=== PATIENT | female | born 1945 | race African-American/Black ===

== ENCOUNTER 2017-03-27 23:58 | Inpatient (IN) | payer BC ==
[~2017-03-27] VITALS: Ht 175.3 cm; Wt 73.5 kg
[~2017-03-27 23:58] MED LIST: AMLO10TA80 PO; FLUO20TA29 PO; LABE100T PO; RISP1 PO
[2017-03-28] MEDS ORDERED: DIPHENHYDRAMINE 50MG/ML VIAL IV ONE (00:15)
[2017-03-28] MEDS ORDERED: FAMOTIDINE 20MG/2ML VIAL IV ONE (00:15)
[2017-03-28] MEDS ORDERED: METHYLPREDNISOLONE SOD SUCC 125 MG/2 ML VIAL IV ONE (00:15)
[2017-03-28 00:54] LABS: BASOPHILS % 0.4 % (0.0-2.0); EOSINOPHILS % 0.7 % (0.0-5.0); HEMATOCRIT. 37.3 % (36.0-48.0); HEMOGLOBIN. 12.1 g/dL (12.0-16.0); LYMPHOCYTES % 21.9 % (20.0-50.0); MEAN CORPUSCULAR HEMOGLOBIN 26.2 pg (28.0-32.0); MEAN CORPUSCULAR VOLUME 80.7 fL (81.0-99.0); MEAN PLATELET VOLUME 8.9 fl (7.4-10.4); MONOCYTES % 9.2 % (2.0-8.0); NEUTROPHILS % 67.8 % (40.0-76.0); PLATELET 210 x1000/uL (130-400); RED BLOOD CELL COUNT 4.62 mill/uL (4.2-5.4); RED CELL DISTRIBUTION WIDTH 16.5 % (11.6-14.6)
[2017-03-28 01:05] LABS: CARBON DIOXIDE 27 mEq/L (21-32); CHLORIDE 106 mEq/L (98-107); ETHANOL BLOOD < 10 mg/dL; TROPONIN I 0.34 ng/mL (0.00-0.04)
[2017-03-28] MEDS ORDERED: HYDRALAZINE 20MG/ML VIAL IV ONE (04:30)
[2017-03-28 08:58] VITALS: BP 147/84
[2017-03-28] MEDS ORDERED: IPRATROPIUM/ALBUTEROL 0.5-3(2.5)MG/3ML NEB INH PRN (11:30)
[2017-03-28] MEDS ORDERED: ACETAMINOPHEN 325MG TABLET PO PRN (11:30)
[2017-03-28] MEDS ORDERED: HYDROCODONE/ACETAMINOPHEN 5/325MG TABLET PO PRN (11:30)
[2017-03-28] MEDS ORDERED: ONDANSETRON HCL 4MG/2ML VIAL IV PRN (11:30)
[2017-03-28] MEDS: LABETALOL HCL 100MG TABLET PO SCH ×2 (11:30→17:50)
[2017-03-28] MEDS: AMLODIPINE 10MG TABLET PO SCH (11:30)
[2017-03-28] MEDS ORDERED: CLONIDINE 0.1MG TABLET PO PRN (11:30)
[2017-03-28 12:00] VITALS: BP 170/100
[2017-03-28] MEDS: SODIUM CHLORIDE 0.45% 1,000 ML IV SCH (12:56)
[2017-03-28] MEDS: ENOXAPARIN 40MG/0.4ML SYR SUBCUT SCH (12:57)
[2017-03-28 16:00] VITALS: BP_SYST 147; BP_SYST 153; BP_DIAS 108; BP_DIAS 80
[2017-03-28] MEDS: RISPERIDONE 1MG TABLET PO SCH (17:49)
[2017-03-28 23:25] LABS: TROPONIN I 0.32 ng/mL (0.00-0.04)
[2017-03-29] VITALS: BP 115/80
[2017-03-29 04:00] VITALS: BP 156/82
[2017-03-29] MEDS: SODIUM CHLORIDE 0.45% 1,000 ML IV SCH ×3 (04:55→20:20)
[2017-03-29 07:36] LABS: BASOPHILS % 0.2 % (0.0-2.0); EOSINOPHILS % 0.5 % (0.0-5.0); HEMOGLOBIN. 11.5 g/dL (12.0-16.0); LYMPHOCYTES % 33.6 % (20.0-50.0); MEAN CORPUSCULAR HEMOGLOBIN 26.2 pg (28.0-32.0); MEAN CORPUSCULAR VOLUME 81.9 fL (81.0-99.0); MEAN PLATELET VOLUME 9.8 fl (7.4-10.4); MONOCYTES % 12.2 % (2.0-8.0); NEUTROPHILS % 53.5 % (40.0-76.0); PLATELET 171 x1000/uL (130-400); RED BLOOD CELL COUNT 4.39 mill/uL (4.2-5.4); RED CELL DISTRIBUTION WIDTH 16.6 % (11.6-14.6)
[2017-03-29 08:00] VITALS: BP 170/102
[2017-03-29 08:29] LABS: CARBON DIOXIDE 28 mEq/L (21-32); CHLORIDE 108 mEq/L (98-107); HDL CHOLESTEROL 59 mg/dL (40-59); LDL CHOLESTEROL 131 mg/dL (5-100); T4 FREE 1.19 ng/dL (0.76-1.46)
[2017-03-29] MEDS: LABETALOL HCL 100MG TABLET PO SCH ×2 (09:20→17:00)
[2017-03-29] MEDS: AMLODIPINE 10MG TABLET PO SCH (09:20)
[2017-03-29] MEDS: ENOXAPARIN 40MG/0.4ML SYR SUBCUT SCH (09:21)
[2017-03-29 12:00] VITALS: BP 159/89
[2017-03-29 16:44] VITALS: BP 108/65
[2017-03-29] MEDS: RISPERIDONE 1MG TABLET PO SCH (17:25)
[2017-03-29 20:00] VITALS: BP 148/72
[2017-03-29] MEDS ORDERED: POTASSIUM CHLORIDE INJ 40 MEQ in DEXT 5% WATER 500 ML IV NR (23:30)
[2017-03-30] VITALS: BP 105/67
[2017-03-30 04:00] VITALS: BP 166/92
[2017-03-30 08:00] VITALS: BP 185/112
[2017-03-30 08:07] LABS: CARBON DIOXIDE 26 mEq/L (21-32); CHLORIDE 105 mEq/L (98-107)
[2017-03-30] MEDS: AMLODIPINE 10MG TABLET PO SCH (11:32)
[2017-03-30] MEDS: LABETALOL HCL 100MG TABLET PO SCH (11:32)
[2017-03-30] MEDS: ENOXAPARIN 40MG/0.4ML SYR SUBCUT SCH (11:32)
[2017-03-30 12:00] VITALS: BP 141/88
[2017-03-30 15:54] VITALS: BP 112/84
[2017-03-30 20:00] VITALS: BP 136/68
[2017-03-30] MEDS: RISPERIDONE 1MG TABLET PO SCH (20:29)
[2017-03-31] VITALS: BP 119/68
[2017-03-31 04:00] VITALS: BP 121/73
[2017-03-31] MEDS: SODIUM CHLORIDE 0.45% 1,000 ML IV SCH (06:10)
[2017-03-31 08:01] VITALS: BP 148/74
[2017-03-31] MEDS: AMLODIPINE 10MG TABLET PO SCH (09:22)
[2017-03-31] MEDS: ENOXAPARIN 40MG/0.4ML SYR SUBCUT SCH (09:23)
[2017-03-31] MEDS: LABETALOL HCL 100MG TABLET PO SCH ×2 (09:23→16:44)
[2017-03-31 12:08] VITALS: BP 153/89
[2017-03-31 16:19] VITALS: BP 146/75
[2017-03-31] MEDS: RISPERIDONE 1MG TABLET PO SCH (16:44)
[2017-03-31] MEDS ORDERED: POTASSIUM CHLORIDE 20MEQ/PACKET PO NR (17:15)
[2017-03-31] MEDS ORDERED: MAGNESIUM 2 G PREMIX 50 ML IV NR (18:00)
[2017-03-31 20:00] VITALS: BP 138/60
[2017-04-01] VITALS: BP 140/66
[2017-04-01] MEDS: SODIUM CHLORIDE 0.45% 1,000 ML IV SCH ×2 (00:59→16:24)
[2017-04-01 04:00] VITALS: BP 128/62
[2017-04-01 07:50] VITALS: BP 151/85
[2017-04-01] MEDS: AMLODIPINE 10MG TABLET PO SCH (08:45)
[2017-04-01] MEDS: LABETALOL HCL 100MG TABLET PO SCH ×2 (08:45→16:24)
[2017-04-01] MEDS: ENOXAPARIN 40MG/0.4ML SYR SUBCUT SCH (08:45)
[2017-04-01 12:00] VITALS: BP 128/96
[2017-04-01 16:00] VITALS: BP_SYST 157; BP_DIAS 93; BP_DIAS 96
[2017-04-01] MEDS: RISPERIDONE 1MG TABLET PO SCH (16:24)
[2017-04-01 20:00] VITALS: BP 139/80
[2017-04-02] VITALS: BP 141/81
[2017-04-02 04:00] VITALS: BP 148/86
[2017-04-02 08:00] VITALS: BP 110/66
[2017-04-02] MEDS: SODIUM CHLORIDE 0.45% 1,000 ML IV SCH (08:40)
[2017-04-02] MEDS: AMLODIPINE 10MG TABLET PO SCH (11:09)
[2017-04-02] MEDS: ENOXAPARIN 40MG/0.4ML SYR SUBCUT SCH (11:10)
[2017-04-02] MEDS: LABETALOL HCL 100MG TABLET PO SCH ×2 (11:10→18:05)
[2017-04-02 16:00] VITALS: BP 190/110
[2017-04-02] MEDS: RISPERIDONE 1MG TABLET PO SCH (18:05)
[2017-04-02 20:00] VITALS: BP 164/80
[2017-04-03] VITALS: BP 150/80
[2017-04-03 04:00] VITALS: BP 159/83
[2017-04-03] MEDS: SODIUM CHLORIDE 0.45% 1,000 ML IV SCH ×2 (06:38→17:23)
[2017-04-03 08:00] VITALS: BP 178/85
[2017-04-03] MEDS: ENOXAPARIN 40MG/0.4ML SYR SUBCUT SCH (08:39)
[2017-04-03] MEDS: AMLODIPINE 10MG TABLET PO SCH (08:41)
[2017-04-03] MEDS: LABETALOL HCL 100MG TABLET PO SCH ×2 (08:41→17:22)
[2017-04-03 09:50] LABS: CARBON DIOXIDE 23 mEq/L (21-32); CHLORIDE 109 mEq/L (98-107)
[2017-04-03 12:00] VITALS: BP 151/79
[2017-04-03 16:00] VITALS: BP 144/70
[2017-04-03 16:38] LABS: BASOPHILS % 0.4 % (0.0-2.0); EOSINOPHILS % 1.7 % (0.0-5.0); HEMATOCRIT. 35.7 % (36.0-48.0); HEMOGLOBIN. 11.5 g/dL (12.0-16.0); LYMPHOCYTES % 39.2 % (20.0-50.0); MEAN CORPUSCULAR HEMOGLOBIN 26.1 pg (28.0-32.0); MEAN CORPUSCULAR VOLUME 80.9 fL (81.0-99.0); MEAN PLATELET VOLUME 9.5 fl (7.4-10.4); MONOCYTES % 11.2 % (2.0-8.0); NEUTROPHILS % 47.5 % (40.0-76.0); PLATELET 205 x1000/uL (130-400); RED BLOOD CELL COUNT 4.41 mill/uL (4.2-5.4); RED CELL DISTRIBUTION WIDTH 16.1 % (11.6-14.6)
[2017-04-03] MEDS: RISPERIDONE 1MG TABLET PO SCH (17:22)
[2017-04-03 20:55] VITALS: BP 147/83
[2017-04-04] VITALS: BP 166/73
[2017-04-04 04:00] VITALS: BP 133/78
[2017-04-04 08:01] VITALS: BP 165/84
[2017-04-04] MEDS: ENOXAPARIN 40MG/0.4ML SYR SUBCUT SCH (08:38)
[2017-04-04] MEDS: AMLODIPINE 10MG TABLET PO SCH (08:38)
[2017-04-04] MEDS: LABETALOL HCL 100MG TABLET PO SCH (08:38)
[2017-04-04] MEDS: SODIUM CHLORIDE 0.45% 1,000 ML IV SCH (10:42)
[2017-04-04] MEDS ORDERED: LORAZEPAM 2MG/ML CPJ IV PRN (11:00)
[2017-04-04] MEDS ORDERED: LACTULOSE 20G/30ML UDC PO PRN (11:00)
[2017-04-04 12:13] VITALS: BP 145/78
[2017-04-04 14:40] VITALS: BP 90/44
[2017-04-04] MEDS ORDERED: RISPERIDONE 1MG TABLET PO SCH (17:00)
== END 2017-04-04 15:30 | disposition home or self-care (01) | DRG 948 ==
LOC: ER 23:59 → OBSVTOIN 03-28 01:39 → INTOOBSV 03-28 01:39 → 8WST 03-28 01:39 → EDBEDREQSVC 03-28 02:13 → ENRESERV 03-28 07:08 → 8WST 03-28 09:19
PROVIDERS: ADMIT Internal Medicine; ATTEND Internal Medicine
DX: R60.9 Edema, unspecified (principal); Z93.0 Tracheostomy status; F03.90 Unspecified dementia, unspecified severity, without behavioral disturbance, psychotic disturbance, mood disturbance, and anxiety; I10 Essential (primary) hypertension; E87.6 Hypokalemia; Z86.73 Personal history of transient ischemic attack (TIA), and cerebral infarction without residual deficits; E66.9 Obesity, unspecified; F32.9 Major depressive disorder, single episode, unspecified; Z79.899 Other long term (current) drug therapy; Z88.0 Allergy status to penicillin; Z88.8 Allergy status to other drugs, medicaments and biological substances; Z68.23 Body mass index [BMI] 23.0-23.9, adult
CPT/HCPCS: 36415; 71010; 80048; 80051; 80053; 80061; 80307; 80329; 82550; 83735; 84439; 84443; 84484; 85025; 92610; 93005; 96374; 96375; 97116; 97163; 97530; 99285; A6261; C1893; G0482; J0360; J1200; J1650; J2930; J3475; J3480; J3490; J7030; J7060

== ENCOUNTER 2018-06-28 18:10 | Inpatient (IN) | payer BC ==
[~2018-06-28] VITALS: Ht 160 cm; Wt 65.8 kg
[~2018-06-28 18:10] MED LIST changes: -LABE100T PO; +LABE100T5 PO
[2018-06-28] MEDS ORDERED: SODIUM CHLORIDE 0.9% 1,000 ML IV ONE (18:34)
[2018-06-28 19:43] LABS: BASOPHILS % 0.3 % (0.0-2.0); EOSINOPHILS % 0.2 % (0.0-5.0); HEMATOCRIT. 41.5 % (36.0-48.0); HEMOGLOBIN. 13.4 g/dL (12.0-16.0); LYMPHOCYTES % 8.3 % (20.0-50.0); MEAN CORPUSCULAR HEMOGLOBIN 26.6 pg (28.0-32.0); MEAN CORPUSCULAR VOLUME 82.5 fL (81.0-99.0); MEAN PLATELET VOLUME 10.6 fl (7.4-10.4); MONOCYTES % 8.6 % (2.0-8.0); NEUTROPHILS % 82.6 % (40.0-76.0); PLATELET 202 x1000/uL (130-400); RED BLOOD CELL COUNT 5.03 mill/uL (4.2-5.4)
[2018-06-28] MEDS ORDERED: HALOPERIDOL LACTATE 5MG/ML VIAL IM ONE (20:00)
[2018-06-28 22:37] LABS: CLARITY URINE TURBID (CLEAR); COLOR URINE YELLOW (YELLOW); KETONES URINE TRACE (NEGATIVE); LEUKOCYTE ESTERASE URINE 1+ (NEGATIVE); NITRITE URINE NEGATIVE (NEGATIVE); OCCULT BLOOD URINE NEGATIVE (NEGATIVE); PROTEIN URINE TRACE (NEGATIVE)
[2018-06-28 22:49] LABS: *AMPHETAMINES SCREEN URINE NEGATIVE (NEGATIVE); *BARBITURATES SCREEN URINE NEGATIVE (NEGATIVE); *BENZODIAZEPINES SCREEN URINE NEGATIVE (NEGATIVE)
[2018-06-28 22:50] LABS: *COCAINE SCREEN URINE NEGATIVE (NEGATIVE); CANNABINOID URINE SCREEN NEGATIVE (NEGATIVE); METHADONE URINE SCREEN NEGATIVE (NEGATIVE); OPIATES URINE SCREEN NEGATIVE (NEGATIVE); PHENCYCLIDINE URINE SCREEN NEGATIVE (NEGATIVE)
[2018-06-28] MEDS ORDERED: CEFTRIAXONE 1 G PREMIX 50 ML IV ONE (23:30)
[2018-06-29 00:45] LABS: CHLORIDE 112 mEq/L (98-107)
[2018-06-29 00:46] LABS: INR 1.1
[2018-06-29 00:49] LABS: ETHANOL BLOOD < 10 mg/dL
[2018-06-29] MEDS ORDERED: ASPIRIN 81MG TABLET PO ONE (01:30)
[2018-06-29] MEDS ORDERED: ASPIRIN 300MG SUPP PR ONE (01:30)
[2018-06-29 02:00] VITALS: BP 135/99
[2018-06-29] MEDS ORDERED: CEFTRIAXONE 1 G PREMIX 50 ML IV SCH (03:15)
[2018-06-29 04:00] VITALS: BP 135/99
[2018-06-29] MEDS ORDERED: NITROGLYCERIN 0.4MG/HR PATCH TOP SCH (06:00)
[2018-06-29 06:24] LABS: BASOPHILS % 0.2 % (0.0-2.0); EOSINOPHILS % 0.1 % (0.0-5.0); HEMATOCRIT. 36.8 % (36.0-48.0); HEMOGLOBIN. 11.6 g/dL (12.0-16.0); LYMPHOCYTES % 17.9 % (20.0-50.0); MEAN CORPUSCULAR HEMOGLOBIN 26.4 pg (28.0-32.0); MEAN CORPUSCULAR VOLUME 83.3 fL (81.0-99.0); MEAN PLATELET VOLUME 10.9 fl (7.4-10.4); MONOCYTES % 9.3 % (2.0-8.0); NEUTROPHILS % 72.5 % (40.0-76.0); PLATELET 192 x1000/uL (130-400); RED BLOOD CELL COUNT 4.41 mill/uL (4.2-5.4); RED CELL DISTRIBUTION WIDTH 14.8 % (11.6-14.6)
[2018-06-29] MEDS: DEXT 5%/0.45% NACL KCL 20MEQ/L 1,000 ML IV SCH ×2 (06:58→15:00)
[2018-06-29 08:00] VITALS: BP 175/126
[2018-06-29] MEDS: ASPIRIN 81MG EC TABLET PO SCH (09:00)
[2018-06-29] MEDS: ENOXAPARIN 40MG/0.4ML SYR SUBCUT SCH (10:11)
[2018-06-29] MEDS: NITROGLYCERIN OINT 1GM/INCH UDPKT TD SCH ×4 (10:14→21:00)
[2018-06-29 12:00] VITALS: BP 135/83
[2018-06-29] MEDS ORDERED: POTASSIUM CHLORIDE INJ 40 MEQ in DEXT 5% WATER 250 ML IV NR (12:00)
[2018-06-29 12:58] LABS: CREATINE KINASE MB FRACTION 60.6 ng/mL (0.5-3.6)
[2018-06-29 16:00] VITALS: BP 128/79
[2018-06-29] MEDS ORDERED: DOCUSATE SODIUM 100MG CAPSULE PO PRN (18:30)
[2018-06-29] MEDS ORDERED: ACETAMINOPHEN 650MG/20.3ML UDC PO PRN (18:30)
[2018-06-29] MEDS ORDERED: LORAZEPAM 2MG/ML CPJ IV PRN (18:30)
[2018-06-29] MEDS ORDERED: ACETAMINOPHEN 650MG SUPP PR PRN (18:30)
[2018-06-29] MEDS ORDERED: DIPHENHYDRAMINE 50MG/ML VIAL IM PRN (18:30)
[2018-06-29] MEDS ORDERED: NA PHOS,M-B/NA PHOS,DI-BA ENEMA 118ML PR PRN (18:30)
[2018-06-29] MEDS: AMLODIPINE 5MG TABLET PO SCH (21:00)
[2018-06-29 22:00] VITALS: BP 90/52
[2018-06-29 22:43] LABS: BG CARBOXYHEMOGLOBIN 0.3 % (0.5-1.5); BG DEOXYHEMOGLOBIN 3.3 % (0.0-5.0); BG FRACTION INSPIRED OXYGEN 21; BG HCO3 ACT 19.2 mmol/L (22.0-26.0); BG METHEMOGLOBIN 0.1 % (0.0-1.5); BG OXYGEN SATURATION 96.7 % (92.0-98.5); BG OXYHEMOGLOBIN 96.3 % (94.0-97.0); BG PCO2 36.5 mmHg (35.0-45.0); BG PH 7.338 (7.350-7.450); BG PO2 95.6 mmHg (75.0-100.0); BG SAMPLE SITE RIGHT BRACHIAL; BG TOTAL HEMOGLOBIN 12.4 g/dL (12.0-18.0); BG VENT MODE ROOM AIR
[2018-06-30] VITALS: BP 99/64
[2018-06-30] MEDS: CEFTRIAXONE 2 G in DEXTROSE 5% WATER 50 ML IV SCH ×2 (00:29→21:26)
[2018-06-30] MEDS: DEXT 5%/0.45% NACL KCL 20MEQ/L 1,000 ML IV SCH ×3 (00:31→21:26)
[2018-06-30 04:00] VITALS: BP 143/87
[2018-06-30] MEDS: AMLODIPINE 5MG TABLET PO SCH (08:08)
[2018-06-30] MEDS: ASPIRIN 81MG EC TABLET PO SCH (08:08)
[2018-06-30 08:30] VITALS: BP 127/86
[2018-06-30 09:02] LABS: BASOPHILS % 0.3 % (0.0-2.0); EOSINOPHILS % 0.2 % (0.0-5.0); HEMATOCRIT. 35.7 % (36.0-48.0); HEMOGLOBIN. 11.4 g/dL (12.0-16.0); LYMPHOCYTES % 22.2 % (20.0-50.0); MEAN CORPUSCULAR HEMOGLOBIN 26.3 pg (28.0-32.0); MEAN CORPUSCULAR VOLUME 81.9 fL (81.0-99.0); MEAN PLATELET VOLUME 10.7 fl (7.4-10.4); MONOCYTES % 8.2 % (2.0-8.0); NEUTROPHILS % 69.1 % (40.0-76.0); PLATELET 186 x1000/uL (130-400); RED BLOOD CELL COUNT 4.36 mill/uL (4.2-5.4)
[2018-06-30] MEDS: ENOXAPARIN 40MG/0.4ML SYR SUBCUT SCH (09:52)
[2018-06-30 12:00] VITALS: BP 131/78
[2018-06-30 16:00] VITALS: BP 132/89
[2018-06-30 20:00] VITALS: BP 92/63
[2018-06-30] MEDS: AMLODIPINE 2.5MG TABLET PO SCH (21:00)
[2018-06-30] MEDS: NITROGLYCERIN OINT 1GM/INCH UDPKT TD SCH (21:00)
[2018-07-01] VITALS: BP 120/99
[2018-07-01 04:00] VITALS: BP 112/51
[2018-07-01] MEDS: DEXT 5%/0.45% NACL KCL 20MEQ/L 1,000 ML IV SCH (06:17)
[2018-07-01 07:18] LABS: BASOPHILS % 0.3 % (0.0-2.0); EOSINOPHILS % 0.3 % (0.0-5.0); HEMATOCRIT. 36.7 % (36.0-48.0); HEMOGLOBIN. 11.7 g/dL (12.0-16.0); MEAN CORPUSCULAR HEMOGLOBIN 26.4 pg (28.0-32.0); MEAN CORPUSCULAR VOLUME 82.8 fL (81.0-99.0); MEAN PLATELET VOLUME 10.7 fl (7.4-10.4); MONOCYTES % 9.2 % (2.0-8.0); NEUTROPHILS % 67.2 % (40.0-76.0); PLATELET 167 x1000/uL (130-400); RED BLOOD CELL COUNT 4.44 mill/uL (4.2-5.4); RED CELL DISTRIBUTION WIDTH 15.1 % (11.6-14.6)
[2018-07-01 08:00] VITALS: BP 140/72
[2018-07-01] MEDS: AMLODIPINE 2.5MG TABLET PO SCH ×2 (09:00→22:03)
[2018-07-01] MEDS: NITROGLYCERIN OINT 1GM/INCH UDPKT TD SCH ×2 (09:00→22:01)
[2018-07-01] MEDS: ASPIRIN 81MG EC TABLET PO SCH (09:00)
[2018-07-01] MEDS: ENOXAPARIN 40MG/0.4ML SYR SUBCUT SCH (09:05)
[2018-07-01 09:36] LABS: CHLORIDE 117 mEq/L (98-107)
[2018-07-01 20:00] VITALS: BP 104/79
[2018-07-01] MEDS: ENOXAPARIN 80MG/0.8ML SYR SUBCUT SCH (21:00)
[2018-07-01] MEDS: CEFTRIAXONE 2 G in DEXTROSE 5% WATER 50 ML IV SCH (21:40)
[2018-07-02] VITALS: BP 110/76
[2018-07-02 04:00] VITALS: BP 126/72
[2018-07-02] MEDS: DEXT 5%/0.45% NACL KCL 20MEQ/L 1,000 ML IV SCH ×2 (04:34→12:53)
[2018-07-02 08:00] VITALS: BP 128/90
[2018-07-02] MEDS: AMLODIPINE 2.5MG TABLET PO SCH ×2 (09:00→21:00)
[2018-07-02] MEDS: ASPIRIN 81MG EC TABLET PO SCH (09:00)
[2018-07-02] MEDS: ENOXAPARIN 80MG/0.8ML SYR SUBCUT SCH (09:13)
[2018-07-02] MEDS: NITROGLYCERIN OINT 1GM/INCH UDPKT TD SCH ×2 (09:14→21:07)
[2018-07-02 10:55] LABS: BASOPHILS % 0.3 % (0.0-2.0); EOSINOPHILS % 0.7 % (0.0-5.0); HEMATOCRIT. 37.6 % (36.0-48.0); HEMOGLOBIN. 11.9 g/dL (12.0-16.0); LYMPHOCYTES % 29.3 % (20.0-50.0); MEAN CORPUSCULAR HEMOGLOBIN 26.3 pg (28.0-32.0); MEAN CORPUSCULAR VOLUME 83.1 fL (81.0-99.0); MEAN PLATELET VOLUME 11.1 fl (7.4-10.4); NEUTROPHILS % 61.7 % (40.0-76.0); PLATELET 142 x1000/uL (130-400); RED BLOOD CELL COUNT 4.52 mill/uL (4.2-5.4); RED CELL DISTRIBUTION WIDTH 15.2 % (11.6-14.6)
[2018-07-02 11:01] LABS: CHLORIDE 118 mEq/L (98-107)
[2018-07-02 12:00] VITALS: BP 136/71
[2018-07-02 16:00] VITALS: BP 157/68
[2018-07-02] MEDS ORDERED: DEXTROSE 5% WATER 1,000 ML IV SCH (19:30)
[2018-07-02 20:00] VITALS: BP 114/89
[2018-07-02] MEDS: CEFTRIAXONE 2 G in DEXTROSE 5% WATER 50 ML IV SCH (21:07)
[2018-07-03] VITALS (7 sets, daily range): BP systolic 112–150; BP diastolic 63–103
[2018-07-03 06:53] LABS: BASOPHILS % 0.5 % (0.0-2.0); EOSINOPHILS % 0.6 % (0.0-5.0); HEMATOCRIT. 38.4 % (36.0-48.0); HEMOGLOBIN. 12.2 g/dL (12.0-16.0); LYMPHOCYTES % 33.8 % (20.0-50.0); MEAN CORPUSCULAR HEMOGLOBIN 26.3 pg (28.0-32.0); MEAN PLATELET VOLUME 11.9 fl (7.4-10.4); MONOCYTES % 8.8 % (2.0-8.0); NEUTROPHILS % 56.3 % (40.0-76.0); PLATELET 144 x1000/uL (130-400); RED BLOOD CELL COUNT 4.63 mill/uL (4.2-5.4); RED CELL DISTRIBUTION WIDTH 15.1 % (11.6-14.6)
[2018-07-03 07:53] LABS: CHLORIDE 114 mEq/L (98-107)
[2018-07-03] MEDS: AMLODIPINE 2.5MG TABLET PO SCH ×2 (09:00→20:27)
[2018-07-03] MEDS: NITROGLYCERIN OINT 1GM/INCH UDPKT TD SCH ×2 (09:35→20:27)
[2018-07-03] MEDS ORDERED: MIDAZOLAM HCL 2 MG/2 ML VIAL IV PRN (11:24)
[2018-07-03] MEDS ORDERED: FENTANYL CITRATE/PF 50MCG/ML 2ML VIAL IV PRN (11:25)
[2018-07-03] MEDS ORDERED: MIDAZOLAM HCL 5 MG/5 ML VIAL ONE (11:29)
[2018-07-03] MEDS ORDERED: FENTANYL CITRATE/PF 50MCG/ML 2ML VIAL ONE (11:29)
[2018-07-03] MEDS ORDERED: SODIUM CHLORIDE 0.9% 10ML VIAL ONE (16:05)
[2018-07-03 18:19] LABS: PARTIAL THROMBOPLASTIN TIME 35.4 sec (23.4-31.0); PROTHROMBIN TIME 10.4 sec (9.1-11.1)
[2018-07-03] MEDS: CEFTRIAXONE 2 G in DEXTROSE 5% WATER 50 ML IV SCH (20:27)
[2018-07-04 00:05] VITALS: BP 112/78
[2018-07-04 04:00] VITALS: BP 113/80
[2018-07-04 08:00] VITALS: BP 102/80
[2018-07-04] MEDS: APIXABAN 5 MG TABLET PO SCH ×2 (10:06→20:09)
[2018-07-04] MEDS: AMLODIPINE 2.5MG TABLET PO SCH (10:06)
[2018-07-04] MEDS: NITROGLYCERIN OINT 1GM/INCH UDPKT TD SCH (10:06)
[2018-07-04 12:00] VITALS: BP 159/89
[2018-07-04] MEDS: ZINC SULFATE 220 MG ( 50 ) CAPSULE PO SCH ×2 (15:01→20:09)
[2018-07-04 16:00] VITALS: BP 107/91
[2018-07-04 20:40] LABS: BASOPHILS % 0.2 % (0.0-2.0); EOSINOPHILS % 0.4 % (0.0-5.0); HEMOGLOBIN. 10.9 g/dL (12.0-16.0); LYMPHOCYTES % 17.3 % (20.0-50.0); MEAN CORPUSCULAR HEMOGLOBIN 26.5 pg (28.0-32.0); MEAN PLATELET VOLUME 10.9 fl (7.4-10.4); MONOCYTES % 6.9 % (2.0-8.0); NEUTROPHILS % 75.2 % (40.0-76.0); PLATELET 121 x1000/uL (130-400); RED CELL DISTRIBUTION WIDTH 15.6 % (11.6-14.6)
[2018-07-04 20:48] LABS: CHLORIDE 119 mEq/L (98-107)
[2018-07-04 20:55] VITALS: BP 125/82
== END 2018-07-04 21:00 | DRG 871 ==
LOC: ER 18:10 → 6EST 06-29 00:13 → EDBEDREQ 06-29 00:18 → EDBEDREQTM 06-29 00:18 → EDBEDREQDT 06-29 00:18 → EDBEDREQSVC 06-29 00:18 → ENRESERV 06-29 00:50 → 7WST 06-29 08:42
PROVIDERS: ADMIT Internal Medicine; ATTEND Internal Medicine
PROC: 0DH63UZ Insertion of Feeding Device into Stomach, Percutaneous Approach (ICD-10-PCS; principal; 2018-07-03 12:00)
DX: A41.9 Sepsis, unspecified organism (principal); G93.41 Metabolic encephalopathy; N39.0 Urinary tract infection, site not specified; E87.0 Hyperosmolality and hypernatremia; E46 Unspecified protein-calorie malnutrition; I82.432 Acute embolism and thrombosis of left popliteal vein; E87.6 Hypokalemia; R62.7 Adult failure to thrive; F03.90 Unspecified dementia, unspecified severity, without behavioral disturbance, psychotic disturbance, mood disturbance, and anxiety; I48.0 Paroxysmal atrial fibrillation; B35.9 Dermatophytosis, unspecified; D64.9 Anemia, unspecified; E78.5 Hyperlipidemia, unspecified; I11.9 Hypertensive heart disease without heart failure; I27.20 Pulmonary hypertension, unspecified; I34.0 Nonrheumatic mitral (valve) insufficiency; K29.80 Duodenitis without bleeding; R13.10 Dysphagia, unspecified; Z79.01 Long term (current) use of anticoagulants; Z86.73 Personal history of transient ischemic attack (TIA), and cerebral infarction without residual deficits; Z87.440 Personal history of urinary (tract) infections; Z88.0 Allergy status to penicillin; Z88.8 Allergy status to other drugs, medicaments and biological substances; Z79.899 Other long term (current) drug therapy; Z68.25 Body mass index [BMI] 25.0-25.9, adult
CPT/HCPCS: 36415; 36600; 70551; 71045; 78580; 80048; 80305; 80307; 80329; 82140; 82375; 82378; 82550; 82553; 82805; 83735; 84443; 84484; 85379; 92610; 93005; 93306; 93970; 96361; 96365; 96372; 99285; A4216; G0482; J0696; J1630; J1650; J2250; J3010; J3480; J7030; J7060; J7070; A4315

== ENCOUNTER 2019-11-03 11:03 | Inpatient (IN) | payer BC ==
[~2019-11-03] VITALS: Ht 152.4 cm; Wt 78.0 kg
[2019-11-03] MEDS ORDERED: ACETAMINOPHEN 650MG SUPP PR STA (11:24)
[2019-11-03] MEDS ORDERED: SODIUM CHLORIDE 0.9% 500 ML IV ONE (12:11)
[2019-11-03 12:28] LABS: BASOPHILS % 0.1 % (0.0-2.0); EOSINOPHILS % 0.1 % (0.0-5.0); HEMATOCRIT. 41.4 % (36.0-48.0); HEMOGLOBIN. 13.6 g/dL (12.0-16.0); LYMPHOCYTES % 10.3 % (20.0-50.0); MEAN CORPUSCULAR HEMOGLOBIN 26.8 pg (28.0-32.0); MEAN CORPUSCULAR VOLUME 81.6 fL (81.0-99.0); MEAN PLATELET VOLUME 8.8 fl (7.4-10.4); MONOCYTES % 4.5 % (2.0-8.0); PLATELET 270 x1000/uL (130-400); RED BLOOD CELL COUNT 5.07 mill/uL (4.2-5.4); RED CELL DISTRIBUTION WIDTH 16.1 % (11.6-14.6)
[2019-11-03 12:36] LABS: CHLORIDE 115 mEq/L (98-107)
[2019-11-03 12:38] LABS: D-DIMER 1.09 mg/L FEU (<0.50); INR 1.1; PROTHROMBIN TIME 12.1 sec (9.6-11.0)
[2019-11-03 12:55] LABS: BG BASE EXCESS 0.9 mmol/L (-2.0-2.0); BG DEOXYHEMOGLOBIN 2.4 % (0.0-5.0); BG FRACTION INSPIRED OXYGEN 100; BG HCO3 ACT 24.2 mmol/L (22.0-26.0); BG METHEMOGLOBIN 0.3 % (0.0-1.5); BG OXYGEN SATURATION 97.6 % (92.0-98.5); BG OXYHEMOGLOBIN 97.3 % (94.0-97.0); BG PCO2 34.4 mmHg (35.0-45.0); BG PH 7.465 (7.350-7.450); BG PO2 100.6 mmHg (75.0-100.0); BG SAMPLE SITE RIGHT BRACHIAL; BG TOTAL HEMOGLOBIN 13.8 g/dL (12.0-18.0); BG VENT MODE MASK - NRB
[2019-11-03] MEDS ORDERED: ASPIRIN 300MG SUPP PR ONE (13:15)
[2019-11-03] MEDS ORDERED: LEVOFLOXACIN 500MG PREMIX 100 ML IV ONE (13:15)
[2019-11-03 13:31] LABS: CLARITY URINE CLOUDY (CLEAR); COLOR URINE DARK YELLOW (YELLOW); KETONES URINE TRACE (NEGATIVE); LEUKOCYTE ESTERASE URINE TRACE (NEGATIVE); NITRITE URINE NEGATIVE (NEGATIVE); OCCULT BLOOD URINE 2+ (NEGATIVE); PROTEIN URINE 2+ (NEGATIVE); SPECIFIC GRAVITY URINE 1.023 (1.005-1.030)
[2019-11-03] MEDS ORDERED: DIPHENHYDRAMINE 50MG/ML VIAL IV PRN (15:30)
[2019-11-03] MEDS ORDERED: IPRATROPIUM/ALBUTEROL 0.5-3(2.5)MG/3ML NEB NEB PRN (15:30)
[2019-11-03] MEDS ORDERED: ONDANSETRON HCL 4MG/2ML INJ IV PRN (15:30)
[2019-11-03] MEDS ORDERED: GUAIFENESIN 200MG/10ML SUGAR FREE UDC PO PRN (15:30)
[2019-11-03] MEDS ORDERED: LORAZEPAM 0.5MG TABLET PO PRN (15:30)
[2019-11-03] MEDS ORDERED: NA PHOS,M-B/NA PHOS,DI-BA ENEMA 118ML PR PRN (15:30)
[2019-11-03] MEDS ORDERED: HYDROCODONE/ACETAMINOPHEN 5/325MG TABLET PO PRN (15:30)
[2019-11-03] MEDS ORDERED: MAGNESIUM/ALUMINUM HYDROXIDE/SIMETHICONE 30ML UDC PO PRN (15:30)
[2019-11-03] MEDS ORDERED: CLONIDINE 0.1MG TABLET PO PRN (15:30)
[2019-11-03] MEDS: LEVOFLOXACIN 500MG PREMIX 100 ML IV SCH (15:30)
[2019-11-03 16:04] LABS: BG CARBOXYHEMOGLOBIN 0.2 % (0.5-1.5); BG DEOXYHEMOGLOBIN 4.6 % (0.0-5.0); BG FRACTION INSPIRED OXYGEN 100; BG METHEMOGLOBIN 0.2 % (0.0-1.5); BG OXYGEN SATURATION 95.4 % (92.0-98.5); BG PCO2 33.3 mmHg (35.0-45.0); BG PH 7.475 (7.350-7.450); BG PO2 76.2 mmHg (75.0-100.0); BG SAMPLE SITE RIGHT BRACHIAL; BG TOTAL HEMOGLOBIN 13.5 g/dL (12.0-18.0); BG VENT MODE MASK - NRB
[2019-11-03] MEDS: DEXTROSE 5% WATER 1,000 ML IV SCH (17:14)
[2019-11-04 01:29] LABS: CREATINE KINASE MB FRACTION 3.5 ng/mL (0.5-3.6)
[2019-11-04] MEDS: DEXTROSE 5% WATER 1,000 ML IV SCH (08:10)
[2019-11-04] MEDS: ASPIRIN 81MG EC TABLET PO SCH (09:52)
[2019-11-04] MEDS: FAMOTIDINE 20MG/2ML VIAL IV SCH (09:58)
[2019-11-04] MEDS: METOPROLOL TARTRATE 5MG/5ML VIAL IV SCH ×2 (12:39→16:40)
[2019-11-04 14:20] LABS: BG BASE EXCESS 0.4 mmol/L (-2.0-2.0); BG CARBOXYHEMOGLOBIN 0.3 % (0.5-1.5); BG DEOXYHEMOGLOBIN 9.4 % (0.0-5.0); BG FRACTION INSPIRED OXYGEN 100; BG HCO3 ACT 23.6 mmol/L (22.0-26.0); BG METHEMOGLOBIN 0.3 % (0.0-1.5); BG OXYGEN SATURATION 90.5 % (92.0-98.5); BG PCO2 33.7 mmHg (35.0-45.0); BG PH 7.464 (7.350-7.450); BG PO2 57.6 mmHg (75.0-100.0); BG SAMPLE SITE RIGHT BRACHIAL; BG TOTAL HEMOGLOBIN 12.8 g/dL (12.0-18.0); BG VENT MODE MASK - NRB
[2019-11-04] MEDS: LEVOFLOXACIN 500MG PREMIX 100 ML IV SCH (15:30)
[2019-11-04] MEDS ORDERED: LEVOFLOXACIN 500MG PREMIX 100 ML IV NR (16:00)
[2019-11-04] MEDS ORDERED: HYDRALAZINE 20MG/ML VIAL IV NR (16:45)
[2019-11-04] MEDS ORDERED: HYDRALAZINE 20MG/ML VIAL IV PRN (16:45)
[2019-11-05] MEDS: DEXTROSE 5% WATER 1,000 ML IV SCH (02:07)
[2019-11-05] MEDS: LORAZEPAM 2MG/ML CPJ IV PRN ×4 (02:08→18:52)
[2019-11-05] MEDS ORDERED: HYDRALAZINE 20MG/ML VIAL IV PRN ×2 (05:30→18:33)
[2019-11-05 05:36] LABS: CHLORIDE 116 mEq/L (98-107)
[2019-11-05 05:43] LABS: LDL CHOLESTEROL 77 mg/dL (5-100)
[2019-11-05 05:44] LABS: HDL CHOLESTEROL 7 mg/dL (40-59)
[2019-11-05 05:45] LABS: CREATINE KINASE 201 IU/L (26-192); T4 FREE 1.57 ng/dL (0.76-1.46)
[2019-11-05 05:54] LABS: BASOPHILS % 0.2 % (0.0-2.0); EOSINOPHILS % 0.1 % (0.0-5.0); HEMATOCRIT. 40.2 % (36.0-48.0); HEMOGLOBIN. 12.7 g/dL (12.0-16.0); LYMPHOCYTES % 13.4 % (20.0-50.0); MEAN CORPUSCULAR VOLUME 82.4 fL (81.0-99.0); MEAN PLATELET VOLUME 8.8 fl (7.4-10.4); MONOCYTES % 4.3 % (2.0-8.0); PLATELET 342 x1000/uL (130-400); RED BLOOD CELL COUNT 4.88 mill/uL (4.2-5.4); RED CELL DISTRIBUTION WIDTH 16.5 % (11.6-14.6)
[2019-11-05] MEDS: METOPROLOL TARTRATE 5MG/5ML VIAL IV SCH ×3 (07:43→22:37)
[2019-11-05] MEDS: ASPIRIN 81MG EC TABLET PO SCH (09:00)
[2019-11-05] MEDS: FAMOTIDINE 20MG/2ML VIAL IV SCH (09:56)
[2019-11-05] MEDS: ENOXAPARIN 40MG/0.4ML SYR SUBCUT SCH (10:29)
[2019-11-05] MEDS ORDERED: VANCOMYCIN 1500MG in DEXTROSE 5% WATER 250ML IV NR (10:30)
[2019-11-05] MEDS: ASPIRIN 300MG SUPP PR SCH (12:45)
[2019-11-05] MEDS: LEVOFLOXACIN 500MG PREMIX 100 ML IV SCH (15:30)
[2019-11-05 15:31] LABS: BG BASE EXCESS 0.9 mmol/L (-2.0-2.0); BG CARBOXYHEMOGLOBIN 0.1 % (0.5-1.5); BG DEOXYHEMOGLOBIN 4.2 % (0.0-5.0); BG FRACTION INSPIRED OXYGEN 60; BG HCO3 ACT 24.1 mmol/L (22.0-26.0); BG METHEMOGLOBIN 0.1 % (0.0-1.5); BG OXYGEN SATURATION 95.8 % (92.0-98.5); BG OXYHEMOGLOBIN 95.6 % (94.0-97.0); BG PCO2 33.6 mmHg (35.0-45.0); BG PH 7.473 (7.350-7.450); BG PO2 78.4 mmHg (75.0-100.0); BG SAMPLE SITE RIGHT RADIAL; BG TOTAL HEMOGLOBIN 12.4 g/dL (12.0-18.0); BG VENT MODE MASK - SIMPLE
[2019-11-05] MEDS ORDERED: LEVOFLOXACIN 500MG PREMIX 100 ML IV SCH (16:00)
[2019-11-05 17:00] LABS: COVID-19 PCR RNA DETECTED
[2019-11-05 17:01] LABS: COVID-19 PCR RNA DETECTED
[2019-11-05 18:36] VITALS: BP 183/110
[2019-11-05 20:00] VITALS: BP 148/86
[2019-11-06] VITALS: BP 157/86
[2019-11-06 04:00] VITALS: BP 144/73
[2019-11-06] MEDS: METOPROLOL TARTRATE 5MG/5ML VIAL IV SCH ×3 (04:00→21:32)
[2019-11-06] MEDS: VANCOMYCIN 1 G PREMIX 200 ML IV SCH ×2 (05:08→22:36)
[2019-11-06] MEDS: DEXTROSE 5% WATER 1,000 ML IV SCH (05:13)
[2019-11-06 07:17] LABS: BASOPHILS % 0.3 % (0.0-2.0); EOSINOPHILS % 0.2 % (0.0-5.0); HEMATOCRIT. 36.4 % (36.0-48.0); HEMOGLOBIN. 11.8 g/dL (12.0-16.0); LYMPHOCYTES % 15.5 % (20.0-50.0); MEAN CORPUSCULAR HEMOGLOBIN 26.5 pg (28.0-32.0); MEAN CORPUSCULAR VOLUME 81.7 fL (81.0-99.0); MEAN PLATELET VOLUME 9.3 fl (7.4-10.4); MONOCYTES % 8.3 % (2.0-8.0); NEUTROPHILS % 75.7 % (40.0-76.0); PLATELET 312 x1000/uL (130-400); RED BLOOD CELL COUNT 4.45 mill/uL (4.2-5.4); RED CELL DISTRIBUTION WIDTH 16.4 % (11.6-14.6)
[2019-11-06 07:19] LABS: CHLORIDE 117 mEq/L (98-107)
[2019-11-06 08:00] VITALS: BP 141/68
[2019-11-06] MEDS: FAMOTIDINE 20MG/2ML VIAL IV SCH (08:29)
[2019-11-06] MEDS: ENOXAPARIN 40MG/0.4ML SYR SUBCUT SCH (08:29)
[2019-11-06] MEDS ORDERED: ENOXAPARIN 40MG/0.4ML SYR SUBCUT NR (11:45)
[2019-11-06] MEDS: ACETAMINOPHEN 650MG SUPP PR PRN (12:25)
[2019-11-06] MEDS: ASPIRIN 300MG SUPP PR SCH (13:09)
[2019-11-06] MEDS: LORAZEPAM 2MG/ML CPJ IV PRN ×2 (14:09→23:25)
[2019-11-06 16:00] VITALS: BP 126/95
[2019-11-06] MEDS: LEVOFLOXACIN 500MG PREMIX 100 ML IV SCH (16:55)
[2019-11-06 17:09] LABS: BG CARBOXYHEMOGLOBIN 0.3 % (0.5-1.5); BG DEOXYHEMOGLOBIN 1.5 % (0.0-5.0); BG FRACTION INSPIRED OXYGEN 100; BG HCO3 ACT 23.7 mmol/L (22.0-26.0); BG METHEMOGLOBIN 0.3 % (0.0-1.5); BG OXYGEN SATURATION 98.5 % (92.0-98.5); BG OXYHEMOGLOBIN 97.9 % (94.0-97.0); BG PCO2 35.3 mmHg (35.0-45.0); BG PH 7.445 (7.350-7.450); BG SAMPLE SITE RIGHT BRACHIAL; BG TOTAL HEMOGLOBIN 12.4 g/dL (12.0-18.0); BG VENT MODE MASK - NRB
[2019-11-06] MEDS: ENOXAPARIN 80MG/0.8ML SYR SUBCUT SCH (21:32)
[2019-11-07] VITALS: BP 156/89
[2019-11-07 02:25] LABS: BASOPHILS % 0.2 % (0.0-2.0); EOSINOPHILS % 0.2 % (0.0-5.0); HEMATOCRIT. 37.7 % (36.0-48.0); HEMOGLOBIN. 12.2 g/dL (12.0-16.0); LYMPHOCYTES % 14.3 % (20.0-50.0); MEAN CORPUSCULAR HEMOGLOBIN 26.5 pg (28.0-32.0); MEAN CORPUSCULAR VOLUME 82.3 fL (81.0-99.0); MEAN PLATELET VOLUME 8.6 fl (7.4-10.4); MONOCYTES % 7.8 % (2.0-8.0); NEUTROPHILS % 77.5 % (40.0-76.0); PLATELET 386 x1000/uL (130-400); RED BLOOD CELL COUNT 4.59 mill/uL (4.2-5.4); RED CELL DISTRIBUTION WIDTH 16.4 % (11.6-14.6)
[2019-11-07 02:33] LABS: CHLORIDE 119 mEq/L (98-107)
[2019-11-07 04:00] VITALS: BP 112/71
[2019-11-07] MEDS: METOPROLOL TARTRATE 5MG/5ML VIAL IV SCH ×3 (05:00→21:33)
[2019-11-07 08:00] VITALS: BP 115/95
[2019-11-07] MEDS ORDERED: DEXT 5%/0.45% NACL 1000ML 1,000 ML IV SCH (08:00)
[2019-11-07] MEDS ORDERED: POTASSIUM CHLORIDE 20MEQ/PACKET NG SCH ×2 (08:00→12:00)
[2019-11-07] MEDS: ASPIRIN 300MG SUPP PR SCH (09:46)
[2019-11-07] MEDS: FAMOTIDINE 20MG/2ML VIAL IV SCH (09:46)
[2019-11-07] MEDS: ENOXAPARIN 80MG/0.8ML SYR SUBCUT SCH ×2 (09:48→21:36)
[2019-11-07 12:00] VITALS: BP 130/91
[2019-11-07] MEDS: ACETAMINOPHEN 325MG TABLET PO PRN (12:34)
[2019-11-07 16:00] VITALS: BP 153/47
[2019-11-07] MEDS: DEXTROSE 5% WATER 1,000 ML IV SCH (17:29)
[2019-11-07] MEDS: ASCORBIC ACID 500 MG TABLET PO SCH (17:30)
[2019-11-07] MEDS: ZINC SULFATE 220 MG ( 50 ) CAPSULE PO SCH (17:30)
[2019-11-07] MEDS: LEVOFLOXACIN 500MG PREMIX 100 ML IV SCH (17:30)
[2019-11-07] MEDS: VANCOMYCIN 1 G PREMIX 200 ML IV SCH (19:46)
[2019-11-07 20:00] VITALS: BP 157/94
[2019-11-08] VITALS: BP 125/67
[2019-11-08 04:00] VITALS: BP 134/79
[2019-11-08] MEDS: METOPROLOL TARTRATE 5MG/5ML VIAL IV SCH ×3 (04:20→21:32)
[2019-11-08] MEDS: ACETAMINOPHEN 650MG SUPP PR PRN ×3 (04:24→21:32)
[2019-11-08 08:00] VITALS: BP 133/67
[2019-11-08] MEDS ORDERED: VANCOMYCIN 750 MG PREMIX 150 ML IV SCH (08:00)
[2019-11-08] MEDS: ASCORBIC ACID 500 MG TABLET PO SCH (09:38)
[2019-11-08] MEDS: FAMOTIDINE 20MG/2ML VIAL IV SCH (09:38)
[2019-11-08] MEDS: ZINC SULFATE 220 MG ( 50 ) CAPSULE PO SCH (09:38)
[2019-11-08] MEDS: ENOXAPARIN 80MG/0.8ML SYR SUBCUT SCH ×2 (09:39→21:31)
[2019-11-08] MEDS: DEXTROSE 5% WATER 1,000 ML IV SCH ×2 (09:39→23:04)
[2019-11-08] MEDS: ASPIRIN 300MG SUPP PR SCH (09:44)
[2019-11-08 10:36] LABS: BG BASE EXCESS -0.3 mmol/L (-2.0-2.0); BG CARBOXYHEMOGLOBIN 0.3 % (0.5-1.5); BG DEOXYHEMOGLOBIN 1.5 % (0.0-5.0); BG FRACTION INSPIRED OXYGEN 100; BG HCO3 ACT 24.1 mmol/L (22.0-26.0); BG METHEMOGLOBIN 0.3 % (0.0-1.5); BG OXYGEN SATURATION 98.5 % (92.0-98.5); BG OXYHEMOGLOBIN 97.9 % (94.0-97.0); BG PCO2 38.4 mmHg (35.0-45.0); BG PH 7.415 (7.350-7.450); BG PO2 128.2 mmHg (75.0-100.0); BG SAMPLE SITE RIGHT RADIAL; BG TOTAL HEMOGLOBIN 11.7 g/dL (12.0-18.0); BG VENT MODE MASK - NRB
[2019-11-08 12:00] VITALS: BP 110/67
[2019-11-08] MEDS: LEVOFLOXACIN 500MG PREMIX 100 ML IV SCH (15:54)
[2019-11-08 16:00] VITALS: BP 118/98
[2019-11-08 16:11] LABS: CHLORIDE 121 mEq/L (98-107)
[2019-11-08 20:00] VITALS: BP 151/84
[2019-11-09] VITALS: BP 146/89
[2019-11-09 04:00] VITALS: BP 132/80
[2019-11-09] MEDS: METOPROLOL TARTRATE 5MG/5ML VIAL IV SCH ×3 (04:00→21:35)
[2019-11-09 08:00] VITALS: BP 151/86
[2019-11-09] MEDS: ACETAMINOPHEN 650MG SUPP PR PRN ×2 (08:16→21:36)
[2019-11-09] MEDS: ZINC SULFATE 220 MG ( 50 ) CAPSULE PO SCH (08:27)
[2019-11-09] MEDS: FAMOTIDINE 20MG/2ML VIAL IV SCH (08:27)
[2019-11-09] MEDS: ENOXAPARIN 80MG/0.8ML SYR SUBCUT SCH ×2 (08:27→21:36)
[2019-11-09] MEDS: ASCORBIC ACID 500 MG TABLET PO SCH (08:27)
[2019-11-09] MEDS: ASPIRIN 300MG SUPP PR SCH (09:00)
[2019-11-09 12:00] VITALS: BP 150/95
[2019-11-09 12:42] LABS: BG CARBOXYHEMOGLOBIN 0.3 % (0.5-1.5); BG DEOXYHEMOGLOBIN 1.7 % (0.0-5.0); BG FRACTION INSPIRED OXYGEN 100; BG HCO3 ACT 24.1 mmol/L (22.0-26.0); BG METHEMOGLOBIN 0.3 % (0.0-1.5); BG OXYGEN SATURATION 98.3 % (92.0-98.5); BG OXYHEMOGLOBIN 97.7 % (94.0-97.0); BG PCO2 41.7 mmHg (35.0-45.0); BG PH 7.379 (7.350-7.450); BG PO2 120.7 mmHg (75.0-100.0); BG SAMPLE SITE RIGHT RADIAL; BG TOTAL HEMOGLOBIN 11.2 g/dL (12.0-18.0); BG VENT MODE MASK - NRB
[2019-11-09] MEDS: LEVOFLOXACIN 500MG PREMIX 100 ML IV SCH (15:40)
[2019-11-09 16:00] VITALS: BP 131/82
[2019-11-09] MEDS: DEXTROSE 5% WATER 1,000 ML IV SCH (16:27)
[2019-11-09 20:00] VITALS: BP 152/79
[2019-11-09] MEDS: METHYLPREDNISOLONE SOD SUCC 40 MG/ML VIAL IV SCH (23:32)
[2019-11-10] VITALS (63 sets, daily range): BP systolic 56–163; BP diastolic 29–84
[2019-11-10 01:58] LABS: BG BASE EXCESS -3.1 mmol/L (-2.0-2.0); BG CARBOXYHEMOGLOBIN 0.2 % (0.5-1.5); BG DEOXYHEMOGLOBIN 27.5 % (0.0-5.0); BG FRACTION INSPIRED OXYGEN 100; BG HCO3 ACT 27.7 mmol/L (22.0-26.0); BG METHEMOGLOBIN 0.2 % (0.0-1.5); BG OXYGEN SATURATION 72.4 % (92.0-98.5); BG OXYHEMOGLOBIN 72.1 % (94.0-97.0); BG PCO2 83.6 mmHg (35.0-45.0); BG PH 7.138 (7.350-7.450); BG PO2 49.2 mmHg (75.0-100.0); BG SAMPLE SITE LEFT RADIAL; BG TOTAL HEMOGLOBIN 12.5 g/dL (12.0-18.0); BG VENT MODE MASK - NRB
[2019-11-10] MEDS: METOPROLOL TARTRATE 5MG/5ML VIAL IV SCH ×3 (04:00→20:40)
[2019-11-10 04:28] LABS: BG BASE EXCESS -8.8 mmol/L (-2.0-2.0); BG CARBOXYHEMOGLOBIN 0.1 % (0.5-1.5); BG DEOXYHEMOGLOBIN 16.5 % (0.0-5.0); BG FRACTION INSPIRED OXYGEN 100; BG HCO3 ACT 18.3 mmol/L (22.0-26.0); BG METHEMOGLOBIN 0.2 % (0.0-1.5); BG OXYGEN SATURATION 83.5 % (92.0-98.5); BG OXYHEMOGLOBIN 83.2 % (94.0-97.0); BG PCO2 43.8 mmHg (35.0-45.0); BG PH 7.238 (7.350-7.450); BG PO2 52.6 mmHg (75.0-100.0); BG SAMPLE SITE LEFT RADIAL; BG TIDAL VOLUME(mL) 550 mL; BG TOTAL HEMOGLOBIN 12.2 g/dL (12.0-18.0); BG VENT MODE VENT - A/C; BG VENT RATE 20 set
[2019-11-10] MEDS ORDERED: MIDAZOLAM HCL 2 MG/2 ML VIAL IV PRN (04:45)
[2019-11-10] MEDS: NOREPINEPHRINE 4 MG in DEXT 5% WATER 246 ML IV PRN ×3 (06:33→16:44)
[2019-11-10 08:12] LABS: BG BASE EXCESS -13.4 mmol/L (-2.0-2.0); BG CARBOXYHEMOGLOBIN 0.3 % (0.5-1.5); BG DEOXYHEMOGLOBIN 8.3 % (0.0-5.0); BG FRACTION INSPIRED OXYGEN 100; BG HCO3 ACT 14.5 mmol/L (22.0-26.0); BG METHEMOGLOBIN 0.3 % (0.0-1.5); BG OXYGEN SATURATION 91.6 % (92.0-98.5); BG OXYHEMOGLOBIN 91.1 % (94.0-97.0); BG PH 7.165 (7.350-7.450); BG PO2 74.5 mmHg (75.0-100.0); BG SAMPLE SITE RIGHT BRACHIAL; BG TIDAL VOLUME(mL) 500 mL; BG TOTAL HEMOGLOBIN 11.6 g/dL (12.0-18.0); BG VENT MODE VENT - A/C; BG VENT RATE 32 set
[2019-11-10] MEDS ORDERED: MIDAZOLAM HCL 2 MG/2 ML VIAL ONE (08:46)
[2019-11-10] MEDS: ZINC SULFATE 220 MG ( 50 ) CAPSULE PO SCH (08:50)
[2019-11-10] MEDS: ASCORBIC ACID 500 MG TABLET PO SCH (08:50)
[2019-11-10] MEDS: FAMOTIDINE 20MG/2ML VIAL IV SCH (08:50)
[2019-11-10] MEDS: METHYLPREDNISOLONE SOD SUCC 40 MG/ML VIAL IV SCH ×2 (08:50→20:52)
[2019-11-10] MEDS: DOCUSATE SODIUM 100MG CAPSULE PO PRN (08:51)
[2019-11-10] MEDS: ENOXAPARIN 80MG/0.8ML SYR SUBCUT SCH ×2 (09:38→20:52)
[2019-11-10] MEDS ORDERED: MIDAZOLAM HCL 100 MG in DEXT 5% WATER 80 ML IV PRN (09:45)
[2019-11-10] MEDS: ASPIRIN 300MG SUPP PR SCH (11:20)
[2019-11-10] MEDS: ACETAMINOPHEN 325MG TABLET PO PRN ×5 (12:41→22:21)
[2019-11-10 14:49] LABS: BG BASE EXCESS -16.2 mmol/L (-2.0-2.0); BG CARBOXYHEMOGLOBIN 0.3 % (0.5-1.5); BG DEOXYHEMOGLOBIN 14.6 % (0.0-5.0); BG FRACTION INSPIRED OXYGEN 100; BG HCO3 ACT 12.8 mmol/L (22.0-26.0); BG METHEMOGLOBIN 0.2 % (0.0-1.5); BG OXYGEN SATURATION 85.3 % (92.0-98.5); BG OXYHEMOGLOBIN 84.9 % (94.0-97.0); BG PH 7.101 (7.350-7.450); BG PO2 61.2 mmHg (75.0-100.0); BG SAMPLE SITE LEFT BRACHIAL; BG TIDAL VOLUME(mL) 500 mL; BG TOTAL HEMOGLOBIN 12.3 g/dL (12.0-18.0); BG VENT MODE VENT - A/C; BG VENT RATE 32 set
[2019-11-10] MEDS: LEVOFLOXACIN 500MG PREMIX 100 ML IV SCH (16:44)
[2019-11-10] MEDS: DEXTROSE 5% WATER 1,000 ML IV SCH (19:00)
[2019-11-10] MEDS ORDERED: NOREPINEPHRINE 32 MG in DEXT 5% WATER 468 ML IV PRN (21:30)
[2019-11-11] VITALS (73 sets, daily range): BP systolic 52–169; BP diastolic 21–100
[2019-11-11] MEDS: AZTREONAM 1 G in DEXTROSE 5% WATER 50 ML IV SCH ×2 (00:03→10:33)
[2019-11-11] MEDS: DOXYCYCLINE 100 MG in DEXT 5% WATER 100 ML IV SCH ×2 (00:21→12:00)
[2019-11-11] MEDS: ACETAMINOPHEN 325MG TABLET PO PRN (00:38)
[2019-11-11] MEDS: DEXTROSE 5% WATER 1,000 ML IV SCH (03:34)
[2019-11-11] MEDS: METOPROLOL TARTRATE 5MG/5ML VIAL IV SCH ×3 (03:34→19:54)
[2019-11-11 08:07] LABS: BG BASE EXCESS -21.6 mmol/L (-2.0-2.0); BG CARBOXYHEMOGLOBIN 1.7 % (0.5-1.5); BG DEOXYHEMOGLOBIN 7.3 % (0.0-5.0); BG HCO3 ACT 9.2 mmol/L (22.0-26.0); BG METHEMOGLOBIN 0.3 % (0.0-1.5); BG OXYGEN SATURATION 92.6 % (92.0-98.5); BG OXYHEMOGLOBIN 90.7 % (94.0-97.0); BG PCO2 40.2 mmHg (35.0-45.0); BG PH 6.979 (7.350-7.450); BG PO2 79.7 mmHg (75.0-100.0); BG SAMPLE SITE RIGHT BRACHIAL; BG TIDAL VOLUME(mL) 500 mL; BG TOTAL HEMOGLOBIN 11.9 g/dL (12.0-18.0); BG VENT MODE VENT - A/C
[2019-11-11] MEDS: ASPIRIN 300MG SUPP PR SCH (09:00)
[2019-11-11] MEDS: ZINC SULFATE 220 MG ( 50 ) CAPSULE PO SCH (09:00)
[2019-11-11] MEDS: METHYLPREDNISOLONE SOD SUCC 40 MG/ML VIAL IV SCH (09:00)
[2019-11-11] MEDS ORDERED: SODIUM BICARBONATE 8.4% 1 MEQ/ML 50ML SYR IV ONE (09:27)
[2019-11-11] MEDS ORDERED: SODIUM BICARBONATE 8.4% 1 MEQ/ML 50ML SYR IV SCH (09:30)
[2019-11-11] MEDS: ASCORBIC ACID 500 MG TABLET PO SCH (10:32)
[2019-11-11] MEDS: FAMOTIDINE 20MG/2ML VIAL IV SCH (10:32)
[2019-11-11] MEDS: ENOXAPARIN 80MG/0.8ML SYR SUBCUT SCH (10:32)
[2019-11-11] MEDS: DOCUSATE SODIUM 100MG CAPSULE PO PRN (10:32)
[2019-11-11] MEDS ORDERED: PHENYLEPHRINE 40 MG in DEXT 5% WATER 246 ML IV PRN (11:30)
[2019-11-11] MEDS ORDERED: LORAZEPAM 2MG/ML CPJ IV PRN (16:15)
[2019-11-11] MEDS ORDERED: MORPHINE SULFATE 2 MG/ML CPJ (NOT FOR IM USE) IV PRN (16:15)
[2019-11-12] MEDS ORDERED: DOXYCYCLINE HYCLATE 100MG CAPSULE PO SCH (21:00)
== END 2019-11-11 20:10 | disposition expired | DRG 871 ==
LOC: ER 11:03 → EDBEDREQ 11:28 → EDBEDREQTM 13:25 → EDBEDREQSVC 13:25 → 7WST 11-05 13:14 → ENRESERV 11-05 17:05 → MICUSO 11-10 05:45
PROVIDERS: ADMIT Internal Medicine; ATTEND Internal Medicine
PROC: 0BH17EZ Insertion of Endotracheal Airway into Trachea, Via Natural or Artificial Opening (ICD-10-PCS; 2019-11-07)
PROC: 5A1945Z Respiratory Ventilation, 24-96 Consecutive Hours (ICD-10-PCS; principal; 2019-11-10)
PROC: 05HY33Z Insertion of Infusion Device into Upper Vein, Percutaneous Approach (ICD-10-PCS; 2019-11-10)
PROC: B54MZZA Ultrasonography of Right Upper Extremity Veins, Guidance (ICD-10-PCS; 2019-11-10)
PROC: 5A12012 Performance of Cardiac Output, Single, Manual (ICD-10-PCS; 2019-11-11)
DX: A41.89 Other specified sepsis (principal); U07.1 COVID-19; I21.4 Non-ST elevation (NSTEMI) myocardial infarction; J96.01 Acute respiratory failure with hypoxia; J12.89 Other viral pneumonia; J96.02 Acute respiratory failure with hypercapnia; R65.21 Severe sepsis with septic shock; E87.0 Hyperosmolality and hypernatremia; E87.3 Alkalosis; G93.40 Encephalopathy, unspecified; N39.0 Urinary tract infection, site not specified; I16.9 Hypertensive crisis, unspecified; I47.2 Ventricular tachycardia; D68.59 Other primary thrombophilia; D72.810 Lymphocytopenia; E87.6 Hypokalemia; I27.20 Pulmonary hypertension, unspecified; B96.20 Unspecified Escherichia coli [E. coli] as the cause of diseases classified elsewhere; F02.80 Dementia in other diseases classified elsewhere, unspecified severity, without behavioral disturbance, psychotic disturbance, mood disturbance, and anxiety; I34.0 Nonrheumatic mitral (valve) insufficiency; I48.91 Unspecified atrial fibrillation; R62.7 Adult failure to thrive; R13.10 Dysphagia, unspecified; R74.0 Nonspecific elevation of levels of transaminase and lactic acid dehydrogenase [LDH]; I10 Essential (primary) hypertension; Z66 Do not resuscitate; Z79.01 Long term (current) use of anticoagulants; Z79.899 Other long term (current) drug therapy; Z86.718 Personal history of other venous thrombosis and embolism; Z86.73 Personal history of transient ischemic attack (TIA), and cerebral infarction without residual deficits; Z93.1 Gastrostomy status; Z68.33 Body mass index [BMI] 33.0-33.9, adult; Z88.0 Allergy status to penicillin; Z88.8 Allergy status to other drugs, medicaments and biological substances
CPT/HCPCS: 36415; 36600; 71045; 76937; 80048; 80053; 80061; 80202; 81003; 82375; 82550; 82553; 82728; 82805; 82962; 83605; 83615; 83735; 83880; 84145; 84439; 84443; 84484; 85025; 85379; 86140; 87070; 87077; 87186; 93005; 94003; 96365; 96366; 96367; 96375; 96376; 99291; C1725; J0360; J1200; J1650; J1956; J2060; J2250; J2370; J2920; J3370; J3490; J7040; J7060; J7070